=== PATIENT | male | born 1945 | race Caucasian/White ===

== ENCOUNTER → 2017-06-10 | Outpatient (CLI) | payer MEDICARE, OTHER ==
[~2017-06-10] MED LIST: ACETAMINOPHEN-1 EAC1; AGGRENOX CAPSU1 EACH; ALLEGRA ALLERG180 MG PO; ASPIRIN325 PO; AUGMENTIN 875875 MG PO; Alfalfa PO; BACTRIM DS TAB1 EACH PO; CARDURA4 MG PO; CENTRUM SILVER1 EAC1; COLACE100 MG PO; DOXYCYCLINE MON50 MG PO; FLOMAX0.4 MG PO; GLUCOSAMINE &1 EAC1; HYDROCHLOROTHIA25 M2 PO; HYDROCODONE-AP1 EAC6 PO; KEFLEX500 MG PO; LISINOPRIL-HCT1 EAC1; LISINOPRIL20 MG PO; MELOXICAM7.5 MG; METFORMIN HCL500 MG PO; MINOCIN100 MG PO; MINOCIN50 MG; MOBIC15 MG PO; MULTIVITAMINS PO; NORCO 5-325 TA1 EACH PO; NYSTATIN 1100000 U/M PO; OSTEO BI-FLEX1 EAC2 PO; OXYCODONE HCL 55 MG PO; PAXIL10 MG; PRILOSEC 20 MG20 MG PO; SINGULAIR 10 MG10 M1 PO; SYMBICORT160 MCG/4. INH; TRAMADOL 50 MG50 MG PO; TRIAMCINOLONE 080 G3 TOP; VENTOLIN HFA 1818 GM INH; XARELTO10 MG PO
[2017-06-10 12:14] LABS: ABSOLUTE BASOPHILS 0.1 thou/uL (0.0-0.2); ABSOLUTE EOSINOPHILS 0.1 thou/uL (0.0-0.7); ABSOLUTE LYMPHOCYTES 1.5 thou/uL (0.8-5.3); ABSOLUTE MONOCYTES 0.4 thou/uL (0.0-1.2); ABSOLUTE NEUTROPHILS 2.8 thou/uL (1.6-8.1); BASOPHILS 1.2 %; EOSINOPHILS 2.5 %; HEMOGLOBIN 14.9 gm/dL (14.0-18.0); LYMPHOCYTES 31.1 %; MCH 32.7 pg (26.0-34.0); MCHC 33.8 g/dL (28.0-37.0); MCV 96.8 fL (80.0-100.0); MONOCYTES 8.8 %; MPV 8.2 fl. (7.2-11.1); NUCLEATED RBCS 0 /100WBC; PLATELET COUNT* 170 thou/uL (150-400); POLYS 56.4 %; RBC 4.55 mil/uL (4.50-6.00); RDW-CV 13.6 % (10.5-14.5); WBC 4.9 thou/uL (4.0-11.0)
[2017-06-10 12:38] LABS: ALBUMIN 3.4 g/dL (3.4-5.0); CALCIUM 8.4 mg/dL (8.5-10.1); CREATININE 0.9 mg/dL (0.6-1.3); POTASSIUM 3.9 mmol/L (3.5-5.1); TOTAL BILIRUBIN 0.4 mg/dL (<0.1-1.0); TOTAL PROTEIN 6.4 g/dL (6.4-8.2)
== END ==
LOC: M.LAB 11:51 → M.CT 13:00
PROVIDERS: Internal Medicine Gastroenterology
DX: C15.9 Malignant neoplasm of esophagus, unspecified (principal); K76.89 Other specified diseases of liver; N28.1 Cyst of kidney, acquired; K22.9 Disease of esophagus, unspecified; I10 Essential (primary) hypertension; J45.909 Unspecified asthma, uncomplicated; Z87.891 Personal history of nicotine dependence